=== PATIENT | male | born 1970 | race African-American/Black ===

== ENCOUNTER 2018-04-11 20:32 | Emergency (ER) | payer OTHER, SELFPAY ==
--- NOTE | 2018-04-11 20:32 | DT_ITS ---
This patient was seen during an EMR downtime April 06, 2018 - April 13, 2018. This patient may have a combination of paper and electronic documentation or all paper documentation. All documentation is viewable within the e-chart portion of [employer]Sheet for each patient visit.
== END 2018-04-11 20:55 | disposition home or self-care (01) ==
LOC: ED 04-12 15:55
PROVIDERS: Emergency Provider Emergency Medicine; Family Provider Internal Medicine; PCP Internal Medicine
DX: H60.91 Unspecified otitis externa, right ear (principal); E11.9 Type 2 diabetes mellitus without complications; Z72.0 Tobacco use; Z79.84 Long term (current) use of oral hypoglycemic drugs; Z79.899 Other long term (current) drug therapy
CPT/HCPCS: 99283

== ENCOUNTER 2021-09-11 12:03 | Outpatient (CLI) | payer OTHER, SELFPAY ==
[2021-09-11] MEDS: 0.9% Saline Lock 10 ML Syringe IV (12:23)
[2021-09-11 12:33] VITALS: BP 122/83; PULSE 108; RESP 16; TEMP 36.6; O2SAT 98; BMI 38.2
[2021-09-11 13:09] VITALS: BP 122/83; PULSE 108; RESP 18; TEMP 36.6; O2SAT 98
[2021-09-11 14:09] VITALS: BP 116/72; PULSE 98; RESP 16; TEMP 36.6; O2SAT 98
== END 2021-09-11 14:11 | disposition home or self-care (01) ==
LOC: MS3OUT 12:09 → MS3 12:10
PROVIDERS: PCP Internal Medicine; Referring Provider Nurse Practitioner Acute Care; Visit Provider Nurse Practitioner Acute Care
DX: Z23 Encounter for immunization (principal); U07.1 COVID-19
CPT/HCPCS: J7050; M0245; Q0245; A4216

== ENCOUNTER → 2023-07-01 | Outpatient (CLI) | payer OTHER, SELFPAY ==
[2023-07-01 12:54] LABS: Anion Gap 9 (5-15); BUN 16 mg/dL (7-18); BUN/Creat Ratio 11.8 RATIO (10-20); Calcium,Total 9.6 mg/dL (8.5-10.1); Chloride 105 mmol/L (98-107); Creatinine, Serum 1.36 mg/dL (0.70-1.30); EST Glomerular Filtration Rate 58 mL/min (>60); Est Glom Filt Rate - Afr Amer 70 mL/min (>60); Glucose 177 mg/dL (74-106); Potassium 3.7 mmol/L (3.5-5.1); Sodium Level 139 mmol/L (136-145)
== END | disposition home or self-care (01) ==
LOC: LAB 11:34
PROVIDERS: PCP Internal Medicine; Referring Provider Nurse Practitioner; Visit Provider Nurse Practitioner
DX: Z12.5 Encounter for screening for malignant neoplasm of prostate (principal); R94.4 Abnormal results of kidney function studies
CPT/HCPCS: 36415; 80048; 84153; G0103

== ENCOUNTER → 2023-09-11 | Outpatient (CLI) | payer OTHER, SELFPAY ==
--- NOTE | 2023-09-11 07:55 | CT_ITS ---
STUDY: CT ABDOMEN AND PELVIS WITH AND WITHOUT CONTRAST REASON FOR EXAM: Male, 53 years old. Abnormal radiologic findings on diagnostic imaging of right kidney RADIATION DOSAGE (If Supplied By Facility): CTDIvol = ( 26.26 ) mGy, DLP = ( 4379.70 ) mGycm TECHNIQUE: Transaxial images were obtained from the dome of the diaphragm to the symphysis pubis without oral contrast. IV 100mL Isovue-370 was administered. Sagittal and coronal images were reconstructed. Individualized dose optimization techniques were used for this CT. COMPARISON: None. FINDINGS: The visualized lung bases are unremarkable. Small pericardial effusion. There is decreased attenuation of the liver consistent with steatosis. Normal gallbladder and extrahepatic biliary system. Normal spleen. Normal pancreas. Normal bilateral adrenal glands. Findings suggestive of a 2.4 cm x 2 cm soft tissue density in the collecting system in the mid portion of the right kidney. Normal left kidney. Normal visualized stomach. Normal small intestine. Normal colon. The appendix is visualized and appears normal. There is scattered atherosclerotic calcification of the abdominal aorta, without a demonstrated aneurysm. Normal inferior vena cava. There is small retroperitoneal lymphadenopathy with enlarged nodes no greater than 10mm in the short axis diameter. Normal urinary bladder. There is enlargement of the prostate gland. It measures 6 cm x 6.6 cm. This causes indentation at the bladder base. Normal abdominal wall. Normal osseous structures. CT/CT Abd/Pelvis W/WO Contrast IMPRESSION: Findings suggestive of a 2.4 cm x 2 cm soft tissue density in the collecting system in the midportion of the right kidney. Correlation with retrograde pyelogram recommended. Diffuse fatty infiltration of the liver. Small pericardial effusion. Electronically Signed: Emiliano Martins MD at 15:17 EST ,
[2023-09-11 08:37] LABS: CREATININE FINGERSTICK 0.9 mg/dL (0.70-1.30); EGFR FINGERSTICK > 60.0000 mL/min (>60)
== END | disposition home or self-care (01) ==
LOC: CT 07:51
PROVIDERS: PCP Internal Medicine; Referring Provider Urology; Visit Provider Urology
DX: Z12.5 Encounter for screening for malignant neoplasm of prostate (principal); R93.421 Abnormal radiologic findings on diagnostic imaging of right kidney; R94.4 Abnormal results of kidney function studies; Z80.42 Family history of malignant neoplasm of prostate
CPT/HCPCS: 74178; Q9967

== ENCOUNTER → 2024-03-31 | Outpatient (CLI) | payer OTHER, SELFPAY ==
--- NOTE | 2024-03-31 12:46 | CT_ITS ---
INDICATION: ABN RAD ON DX IMAGING R KIDNEY EXAMINATION: CT ABDOMEN WITH IV CONTRAST CT Abdomen W/ Contrast Injection TECHNIQUE: Helically acquired images were obtained of the abdomen following IV contrast. The protocol utilizes one or more of the following dose reduction techniques: automated exposure control, adjustment of mA and/or kV according to patient size,and/or use of iterative reconstruction technique. IV Contrast dosage and agent: 100 cc of Isovue-300 Oral contrast: None. RADIATION DOSAGE (If Supplied By Facility): CTDIvol = ( 15.91 ) mGy, DLP = ( 883.74 ) mGycm COMPARISON: Prior study dated: 09/11/2023 FINDINGS: LOWER CHEST: Lung bases are clear. Persistent small pericardial effusion unchanged. LIVER: Hepatic steatosis. No focal mass. GALLBLADDER AND BILIARY TREE: No calcified gallstones. No gallbladder distension or wall edema. No intra- or extrahepatic biliary ductal dilation. PANCREAS: No focal cystic or solid mass. SPLEEN: Normal size without focal cystic or solid mass. ADRENAL GLANDS: No nodules. KIDNEYS AND URETERS: Previously noted questionable abnormality in the mid pole of right kidney is not seen on this examination. No focal mass is identified.] Irregularity in the upper pole of right kidney likely due to small fatty lesion. No hydronephrosis. PERITONEUM: No ascites or free air. No other fluid collection. BOWEL: No evidence of acute appendicitis. No stomach or bowel distension. No focal inflammatory change. LYMPH NODES: No enlarged mesenteric or retroperitoneal lymph nodes. VESSELS: Aorta is non-dilated. ABDOMINAL WALL: No discrete abdominal wall hernia. BONES: No lytic or blastic abnormality. CT/Abdomen WITH IV Contrast IMPRESSION: 1. No renal mass is seen. 2. Hepatic steatosis. 3. Small pericardial effusion unchanged. Electronically Signed: Amandeep Wynn MD at 14:13 EDT ,
[2024-03-31 13:13] LABS: CREATININE FINGERSTICK 1.4 mg/dL (0.70-1.30)
== END | disposition home or self-care (01) ==
LOC: CT 12:45
PROVIDERS: PCP Internal Medicine; Referring Provider Urology; Visit Provider Urology
DX: R93.421 Abnormal radiologic findings on diagnostic imaging of right kidney (principal)
CPT/HCPCS: 74160; Q9967

== ENCOUNTER 2024-10-22 10:09 | Inpatient (IN) | payer OTHER, SELFPAY ==
[2024-10-22] VITALS (13 sets, daily range): BP systolic 101–133; BP diastolic 60–114; PULSE 82–114; RESP 13–22; TEMP 36.3–37.6; O2SAT 96–100; BMI 38.6; BMI 38.4
--- NOTE | 2024-10-22 10:17 | EKG12_ITS ---
Test Reason : Blood Pressure : */* mmHG Vent. Rate : 100 BPM Atrial Rate : 100 BPM P-R Int : 176 ms QRS Dur : 96 ms QT Int : 368 ms P-R-T Axes : 55 -23 42 degrees QTcB Int : 474 ms Normal sinus rhythm Incomplete right bundle branch block Borderline ECG Confirmed by ERNST BROOKS, CLARENCE ([id number]), editor city YVONNE VALLE ([id number]) on 10/25/2024 6:34:43 AM Referred By: Confirmed By: CLARENCE DUKES MD
[2024-10-22] MEDS: 0.9% Normal Saline (1000mL) 1,000 ML 999 ML IV (10:29)
[2024-10-22 10:35] LABS: Absolute Lymphocyte Count 2.44 X10^3/uL (0.83-4.51); Absolute Neutrophil Count 4.5 X10^3/uL (2.0-7.7); Basophil# 0.05 X10^3/uL; Basophil% 0.6 % (0-1); Eosinophil# 0.18 X10^3/uL; Eosinophils% 2.3 % (0-5); Hematocrit 27.7 % (40-54); Hemoglobin 8.9 g/dL (13.0-16.5); Lymphocyte # 2.44 X10^3/ul (0.83-4.51); Lymphocyte % 31.5 % (19-41); Mean Corp Hgb Conc 32.1 g/dL (32-36); Mean Corpuscular Hgb 28.1 pg (27.0-32.0); Mean Corpuscular Volume 87.4 fL (80-94); Mean Platelet Vol. 10.2 fl (6.2-12.0); Monocyte# 0.57 X10^3/uL; Monocyte% 7.4 % (0-10); NRBC Flagged by Analyzer 1.4 % (0-5); Neutrophil # 4.48 X10^3/uL (2.7-7.7); Neutrophil % 57.8 % (47-70); Platelet Count 243 K/mm3 (150-450); RBC Distribution Width CV 14.8 % (11.6-14.6); RBC Distribution Width SD 45.7 fl (35.1-43.9); Red Blood Count 3.17 M/mm3 (4.6-6.2); White Blood Count 7.8 K/mm3 (4.4-11.0)
[2024-10-22 10:56] LABS: ALB/GLOB Ratio 1.2 RATIO (0.9-2.4); AST(SGOT) 20 U/L (15-37); Alanine Aminotransfer ALT/SGPT 35 U/L (16-61); Albumin, Serum 3.8 g/dL (3.2-5.0); Alkaline Phosphatase 69 U/L (45-117); Anion Gap 5 (5-15); BUN 13 mg/dL (7-18); BUN/Creat Ratio 10.7 RATIO (10-20); Calcium,Total 9.4 mg/dL (8.5-10.1); Chloride 108 mmol/L (98-107); Creatinine, Serum 1.22 mg/dL (0.70-1.30); EST Glomerular Filtration Rate 65 mL/min (>60); Est Glom Filt Rate - Afr Amer 79 mL/min (>60); Estimated Creatinine Clearance 93.98 ml/min; Globulin 3.3 g/dL (2.2-4.2); Glucose 154 mg/dL (74-106); Lipase 121 U/L (13-75); Potassium 3.6 mmol/L (3.5-5.1); Protein, Total 7.1 g/dL (6.4-8.2); Sodium Level 139 mmol/L (136-145); Troponin-I HS 5 pg/mL (3.0-78.0)
[2024-10-22] MEDS: Pantoprazole Sodium 40 MG in 0.9% Normal Saline (100mL MB+) 100 ML 330 MG IV (11:12)
--- NOTE | 2024-10-22 11:17 | EX.ED.DYSGE1 ---
HPI History of Present Illness Chief Complaint: GI Bleed Narrative Narrative: Patient is a 54-year-old male with past medical history of LESLIE, hypercholesteremia, hypertension, type 2 diabetes who presents to the emergency department with a chief complaint of shortness of breath, dark tarry stools. He states it has been going on for about a week. He states that he followed up with his primary care physician in the outpatient setting and notes that he had blood work obtained and noted that his hemoglobin was noted be 9.7. He states that he provided a stool sample that was positive for blood. He states that over the past 2 to 3 weeks he has been using meloxicam and Tylenol arthritis as well. Patient states that he had a recent colonoscopy within the last approximately 3 years and notes that this was normal and no polyps were removed. He states that he has not had anything like this happen before. He states that he is getting short of breath with exertion as well but denies any chest pain. [facility] Medical History Back pain Neck pain Knee pain Shoulder pain Hemorrhoids Gout Acute arthritis Sleep apnea High cholesterol High blood pressure Diabetes type 2, controlled Home Medications ?Medication ?Instructions ?Recorded ?Last Taken ?Type atorvastatin 40 mg tablet 40 mg PO QHS 09/11/21 Unknown History hydrochlorothiazide 12.5 mg capsule 12.5 mg PO DAILY 09/11/21 Unknown History losartan 100 mg tablet 100 mg PO DAILY 09/11/21 Unknown History metformin 500 mg tablet 1,000 mg PO BID 09/11/21 Unknown History omeprazole 40 mg capsule,delayed 80 mg PO DAILY 09/11/21 Unknown History release empagliflozin 25 mg tablet 25 mg PO DAILY 07/13/23 Unknown History (Jardiance) Allergy/AdvReac Type Severity Reaction Status Date / Time ADRIANA Inhibitors Allergy Intermediate hives Verified 10/22/24 10:11 Social History Smoking Status: Never smoker ROS ROS ED ROS Narrative Constitutional: Denies any lightheadedness, dizziness, fevers, chills Eyes: Denies change in vision double vision blurry vision Cardiovascular: Denies chest pain or palpitations Respiratory: Complains of shortness of breath as noted above denies coughing or wheezing Abdomen: Denies any abdominal pain nausea vomit diarrhea : Denies any urinary symptoms Neurological: Denies any numbness, weakness, tingling Musculoskeletal: Denies back pain Skin: Denies rashes or lesions EXAM Physical Exam Narrative Exam Narrative: General: Patient lying in bed rest comfortably did not appear to be in acute distress Head:'s atraumatic, normocephalic Eyes: PERRL body, EOMI bilateral, no conjunctival injection noted Neck: Soft, supple, trachea midline Cardiovascular: Regular rate and rhythm no murmurs gallops rubs noted Respiratory: Clear to auscultation bilaterally no rales rhonchi or wheezes noted Abdomen: Soft, nondistended, no tenderness palpation, bowel sounds present x 4 Extremities: +5/5 strength noted in the bilateral upper and lower extremities Neurological: Patient following commands knew that he was at [facility] year is 2023 Skin: Warm, dry, intact Const Vital Signs: 10/22/24 10:10 10/22/24 10:10 10/22/24 12:10 Temperature 97.3 F L Temperature Source Temporal Pulse Rate 113 H 114 H 92 Respiratory Rate 22 H 13 Blood Pressure 131/86 H 104/65 Blood Pressure Mean 101 78 Pulse Ox 99 97 Oxygen Delivery Method Room Air Room Air MDM MDM MDM Narrative Medical decision making narrative: Patient is a 54-year-old male who presented to the emergency department chief complaint of dark tarry stools. Patient will have a workup performed here on the differential diagnose includes Melamin to upper GI bleed, diverticulosis, diverticulitis. Once workup is obtained reviewed he will be reevaluated. Patient will be given 40 mg IV Protonix. Patient CBC was reviewed and showed a white blood count of 7.8, hemoglobin did drop from 9.7-8.9, platelet count normal at 243. Patient sodium normal 139, potassium normal 3.6, creatinine normal at 1.22. Patient's AST and ALT were normal at 20 and 35 respectively with a normal total bilirubin of 0.60. Patient lipase was elevated to 121. Patient does not have any epigastric pain on exam. Patient was ambulated here in the emergency department oxygen level remained normal however he did become tachycardic and short of breath with exertion. I did discuss case with Dr. Tolbert who states that he would like the patient to be admitted so he can perform an EGD. Patient is agreeable this plan patient case will be discussed with hospitalist. Discussed case with hospitalist Dr. Steve who accept patient for admission. Patient is agreeable with this plan all question concerns were answered bedside. Lab Data Labs: Laboratory Results - last 24 hr 10/22/24 10:30 WBC 7.8 RBC 3.17 L Hgb 8.9 L Hct 27.7 L MCV 87.4 MCH 28.1 MCHC 32.1 RDW Std Deviation 45.7 H RDW Coeff of Ekaterina 14.8 H Plt Count 243 MPV 10.2 Immature Gran % (Auto) 0.400 Neut % (Auto) 57.8 Lymph % (Auto) 31.5 [place] % (Auto) 7.4 Eos % (Auto) 2.3 Baso % (Auto) 0.6 Absolute Neuts (auto) 4.5 Absolute Lymphs (auto) 2.44 Nucleated RBC % 1.4 Sodium 139 Potassium 3.6 Chloride 108 H Carbon Dioxide 27.0 Anion Gap 5 BUN 13 Creatinine 1.22 Estim Creat Clear Calc 93.98 Est GFR (MDRD) Af Amer 79 Est GFR (MDRD) Non-Af 65 BUN/Creatinine Ratio 10.7 Glucose 154 H Calcium 9.4 Total Bilirubin 0.60 AST 20 ALT 35 Alkaline Phosphatase 69 Troponin I High Sens 5 B-Natriuretic Peptide 2.3 Total Protein 7.1 Albumin 3.8 Globulin 3.3 Albumin/Globulin Ratio 1.2 Lipase 121 H Discharge Plan Triage Chief Complaint: GI Bleed ED Provider: Cali Marc Dx/Rx/DC Orders Clinical Impression: Upper GI bleed, Dyspnea on exertion Prescriptions: No Action Jardiance 25 mg tablet 25 mg PO DAILY atorvastatin 40 mg tablet 40 mg PO QHS Patient Comments: take 1 tablet by mouth daily at bedtime metformin 500 mg tablet 1,000 mg PO BID Patient Comments: take 2 tablets by mouth twice a day with meals omeprazole 40 mg capsule,delayed release(DR/EC) 80 mg PO DAILY Patient Comments: take 1 capsule by mouth once daily hydrochlorothiazide 12.5 mg capsule 12.5 mg PO DAILY Patient Comments: take 1 capsule by mouth once daily losartan 100 mg tablet 100 mg PO DAILY Patient Comments: take 1 tablet by mouth once daily Primary Care Provider: Bladimir Smith Referrals: Bladimir Smith MD [Primary Care Provider] - Print Language: Luxembourgish Disposition Disposition: Acute Care Hospital [facility]
[2024-10-22 11:32] LABS: BNP,B-Type NATRIURETIC PEPTIDE 2.3 pg/mL (0-100)
--- NOTE | 2024-10-22 12:16 | PCM.HP.STD ---
HPI - General General Date of Admission: 10/22/24 Date of Service: 10/22/24 Chief Complaint: Dark stools HPI Narrative AI SHAFER, is a 54 M who presented to the emergency department [facility] on 12/23/2023 due to dark tarry stools. He reported that he has had dark tarry stools for about a week and he said progressively worsening shortness of breath with exertion. He went to his primary care physician's office today and had blood work at which time he was found to be anemic with a hemoglobin of 9.7. This is reportedly new however baseline is unknown. A stool sample was provided and found to be positive for heme and he was therefore sent to the emergency department. He reported that over the past 2 to 3 weeks he has been using meloxicam and Tylenol arthritis consistently for joint pain. He did report that he had a colonoscopy within the last 3 years and it was normal with no polyps removed. He states he is never had anything like this previously and has never been admitted in the hospital before. He denies any chest pain, nausea or vomiting, hematemesis, hematochezia or diarrhea. Vital signs on presentation showed a temperature of 97.3, heart rate 113, respiratory rate 22, blood pressure was 131/86 and pulse ox was 99% on room air. CBC on admission showed a hemoglobin of 8.9 but was otherwise unremarkable. Chemistry panel was unremarkable other than hyperglycemia with a blood sugar 154. Glascow-Blatchford score was 9 the [facility] Medical History Back pain Neck pain Knee pain Shoulder pain Hemorrhoids Gout Acute arthritis Sleep apnea High cholesterol High blood pressure Diabetes type 2, controlled Home Medications ?Medication ?Instructions ?Recorded ?Last Taken ?Type atorvastatin 40 mg tablet 40 mg PO QHS 09/11/21 Unknown History hydrochlorothiazide 12.5 mg capsule 12.5 mg PO DAILY 09/11/21 Unknown History losartan 100 mg tablet 100 mg PO DAILY 09/11/21 Unknown History metformin 500 mg tablet 1,000 mg PO BID 09/11/21 Unknown History omeprazole 40 mg capsule,delayed 80 mg PO DAILY 09/11/21 Unknown History release empagliflozin 25 mg tablet 25 mg PO DAILY 07/13/23 Unknown History (Jardiance) Allergy/AdvReac Type Severity Reaction Status Date / Time ADRIANA Inhibitors Allergy Intermediate hives Verified 10/22/24 10:11 Family History no significant family his no significant family history Surgical History no surgical history no surgical history Social History (Updated 10/22/24 @ 17:[address] Kat Steve, DO) Smoking Status: Former smoker how long ago did patient quit smokin or 8 years ago alcohol intake: current alcohol intake frequency: holidays/special occasions only substance use type: does not use ROS Constitutional Constitutional: Denies anorexia, change in weight, chills, fatigue, fever(s), malaise, night sweats, weakness or other Eyes Eyes: Denies blurry vision, change in eye color, change in vision, discharge from eye(s), double vision, erythema, eye pain, loss of vision or other ENT HEENT: Denies abnormal hearing, dysphagia, ear pain, epistaxis, headache(s), hearing loss, nasal congestion, nasal discharge, post nasal drip, sinus pressure, sore throat or other Cardiovascular Cardiovascular: Reports dyspnea on exertion; Denies chest pain, claudication, edema, lightheadedness, orthopnea, palpitations, paroxysmal nocturnal dyspnea, rapid heart rate, syncope or other Respiratory/Chest Respiratory/Chest: Reports shortness of breath with exertion; Denies cough, dyspnea, excessive phlegm production, hemoptysis, productive cough, shortness of breath at rest, wheezing or other Gastrointestinal Gastrointestinal: Reports melena; Denies abdominal pain, coffee ground emesis, constipation, diarrhea, dyspepsia, hematemesis, hematochezia, loose stools, nausea, vomiting or other Genitourinary Genitourinary: Denies burning urination, difficulty urinating, dysuria, hematuria, nocturia, urinary frequency, urinary hesitancy, urinary incontinence, urinary urgency or other Musculoskeletal Musculoskeletal: Reports joint pain and joint stiffness Neurologic Neurologic: Denies abnormal gait, abnormal speech, confusion, disequilibrium, dizziness, focal weakness, headache(s), numbness, paresthesias, seizure-like activity, seizures, syncope, tingling, tremor(s) or other Psychiatric Psychiatric: Denies anxiety, depression, homicidal ideation, suicidal ideation or other Endocrine Endocrinology: Denies change in body appearance, cold intolerance, excessive sweating, heat intolerance, polydipsia, polyuria or other Hematologic/Lymphatic Hematologic/Lymphatic: Denies anemia, easy bleeding, easy bruising, lymphadenopathy or other Allergic/Immunologic Allergic/Immunologic: Denies rhinitis, hives, eczemia, asthma or other Vital Signs Vital Signs Vital Signs: 10/22/24 10:10 10/22/24 10:10 10/22/24 12:10 Temperature 97.3 F L Temperature Source Temporal Pulse Rate 113 H 114 H 92 Respiratory Rate 22 H 13 Blood Pressure 131/86 H 104/65 Blood Pressure Mean 101 78 Pulse Ox 99 97 Oxygen Delivery Method Room Air Room Air Weight Weight: 129.3 kg Body Mass Index (BMI) 38.6 Physical Exam Const alert, oriented x3, no apparent distress, healthy appearing and well nourished; Negative for average body habitus Constitutional Narrative: Obese, middle-aged, -[place] male, sitting up in bed, appears comfortable, nontoxic General Appearance: cooperative HEENT normocephalic, head/scalp atraumatic, hearing grossly normal bilaterally and moist oral mucous membranes HEENT Narrative: Mallampati 3 Eyes Negative for conjunctivae normal Eyes Narrative: Conjunctiva pallor noted, no scleral icterus Resp normal respiratory effort, no retractions, no use of accessory muscles and clear to auscultation bilaterally Auscultation: Negative for rales, rhonchi or wheezes Cardio regular rhythm, S1 normal heart sound, S2 normal heart sound, no murmurs, no rub, no gallops and no clicks; Negative for regular rate Cardio Narrative: Mild tachycardia GI normal to inspection, nondistended, normoactive bowel sounds, soft to palpation and non-tender Extremity no clubbing, cyanosis or edema Extremity Narrative: 2+ pedal and radial pulses Neuro oriented x3, moves all extremities and no focal motor deficits Speech: speech normal Psych affect normal Psych Narrative: Eye contact is good patient interacts appropriately Results Lab / Micro Data 10/22/24 13:12 10/22/24 10:30 Labs: Laboratory Results - last 24 hr 10/22/24 10:30: WBC 7.8, RBC 3.17 L, Hgb 8.9 L, Hct 27.7 L, MCV 87.4, MCH 28.1, MCHC 32.1, RDW Std Deviation 45.7 H, RDW Coeff of Ekaterina 14.8 H, Plt Count 243, MPV 10.2, Immature Gran % (Auto) 0.400, Neut % (Auto) 57.8, Lymph % (Auto) 31.5, [place] % (Auto) 7.4, Eos % (Auto) 2.3, Baso % (Auto) 0.6, Absolute Neuts (auto) 4.5, Absolute Lymphs (auto) 2.44, Nucleated RBC % 1.4, Sodium 139, Potassium 3.6, Chloride 108 H, Carbon Dioxide 27.0, Anion Gap 5, BUN 13, Creatinine 1.22, Estim Creat Clear Calc 93.98, Est GFR (MDRD) Af Amer 79, Est GFR (MDRD) Non-Af 65, BUN/Creatinine Ratio 10.7, Glucose 154 H, Calcium 9.4, Total Bilirubin 0.60, AST 20, ALT 35, Alkaline Phosphatase 69, Troponin I High Sens 5, B-Natriuretic Peptide 2.3, Total Protein 7.1, Albumin 3.8, Globulin 3.3, Albumin/Globulin Ratio 1.2, Lipase 121 H Assessment & Plan Assessment/Plan (1) Melena: (2) Acute anemia: (3) Dyspnea on exertion: PLAN: Plan Melena -Highly suspect related upper GI bleed with ongoing NSAID use -Suspect slow bleed due to lack of abnormality and BUN/creatinine ratio -Protonix bolus with drip started -N.p.o. for now -Every 6 hour hemoglobin -Avoid NSAIDs -Patient is not on any anticoagulants -Will transfuse for hemoglobin less than 7 or precipitous drop -GI consultation for probable EGD later today Acute anemia -Baseline is unknown however his primary care physician told him his hemoglobin was down quite a bit and was reported to be 9.7 in the outpatient setting with a repeat here of 8.9 -Every 6 hour hemoglobin -Transfuse for hemoglobin less than 7 or precipitous drop -Likely related to the above -Will prescribe oral iron at discharge -EGD pending Dyspnea on exertion -Highly suspect it is related to his anemia -Monitor clinically Essential hypertension/hyperlipidemia -Will hold home losartan and HCTZ for now given drop in blood pressure with anemia -Continue home atorvastatin DM-2 -Continue home Jardiance -Hold home metformin -SSI with Accu-Cheks every 6 hours for now -Once p.o. diet started transition to 3 times daily History of GERD -Hold home omeprazole History of LESLIE -Patient noncompliant with CPAP -Monitor for oxygen needs while sleeping Obesity -BMI 38.4 -Recommend weight loss -complicates treatment, prognosis, outcomes Remote tobacco abuse -Encouraged ongoing cessation DVT prophylaxis -No chemoprophylaxis due to bleeding -SCDs CODE STATUS Full code Charges/Coding Visit Charges Inpatient E&M: 95252 Init Hosp L2
[2024-10-22 13:20] LABS: Hemoglobin 7.9 g/dL (13.0-16.5)
--- NOTE | 2024-10-22 13:31 | CASEMGMT ---
Care Management Face to Face with patient for initial transition planning/care coordination assessment in the ED. This television writer introduced self and role at [facility]. Patient lying in bed, alert and oriented. Patient?s , Ruchi, bedside and permission given to speak with patient?s present. Patient willing to participate in assessment and is able to answer all questions appropriately. Care providers, pharmacy, and demographics verified. Admitting Diagnosis: dyspnea on exertion Other diagnosis history: hypercholesteremia, hypertension, type 2 diabetes PCP: Dr. Smith Specialists: none Preferred Pharmacy: [facility] ([place]) Insurance: [employer] Prescription Benefit: yes Living Will/HPOA: none, but would like to complete while admitted. LNOK: , Ruchi. 4 children. 3 of which live locally; one in [place]. Living Arrangements: 3 level home, one of which is basement. 3 steps to enter and full flights of stairs to top floor and to basement. Independent with all ADL?s prior. Transportation: patient drives and reports it is reliable transportation. DME: CPAP that patient reports he does not use as often as he should. Glucometer and testing strips, although he reports not using this as often as he should either and reports not knowing when the last time he picked up testing strips was. HHC: none. Outpatient PT for back pain recently began through the [facility] SNF/Rehab: none Community Resources: none Patient goals: Patient wishes to discharge home, denies need for home health at this time. Patient states he has no further needs or concerns at this time. Disposition Plan: admission to acute; RN CM/SW to follow for discharge planning needs that may arise. Melissa Alarcon, INTERNAL SECURITY MANAGER, [employer]
[2024-10-22] MEDS: Pantoprazole Sodium 80 MG in 0.9% Normal Saline (100mL Bag) 80 ML 10 MG CONT INF (14:16)
--- NOTE | 2024-10-22 16:04 | PRE.ANES_ITS ---
ASA Classification* ASA Classification ASA Classification: 2 Assessment & Plan Anesthesia* Anesthesia Assessment Anesthesia Assessment: Discussed sedation and/or anesthesia options, risks, benefits, and alternatives with patient/parents/legal guardian/POA. Questions invited. The patient/parents/legal guardian/POA seems to understand and agrees to proceed with anesthesia plan. Reviewed the physical assessment, medical history, allergy history and patient home medications list prior to surgery/procedure/anesthetic and documented any changes. Performed airway and anesthesia risk assessments. Anesthesia Type Anesthesia Type: MAC History Source History Obtained from:: Patient and Chart Anesthesia Focused Assessment* Temperature: 97.8 F Pulse Rate: 82 Blood Pressure: 103/60 Respiratory Rate: 16 Pulse Ox: 96 Oxygen Delivery Method: Room Air Airway Assessment Mouth opens: >3 cm Mallampati Score: IV Teeth Condition: Caps/Crowns (Patient has a couple of His Upper Teeth. They Are Both Tight.) Neck Range of motion (ROM): Limited ROM Focused Labs Anesthesia Preop lab: CBC WBC 7.8 K/mm3 (4.4-11.0) 10/22/24 10:30 RBC 3.17 M/mm3 (4.6-6.2) L 10/22/24 10:30 Hgb 7.9 g/dL (13.0-16.5) L 10/22/24 13:12 Hct 25.0 % (40-54) L 10/22/24 13:12 Plt Count 243 K/mm3 (150-450) 10/22/24 10:30 CHEMISTRY Potassium 3.6 mmol/L (3.5-5.1) 10/22/24 10:30 Sodium 139 mmol/L (136-145) 10/22/24 10:30 BUN 13 mg/dL (7-18) 10/22/24 10:30 Creatinine 1.22 mg/dL (0.70-1.30) 10/22/24 10:30 Glucose 154 mg/dL (74-106) H 10/22/24 10:30 COAG Pre-Assessment Diagnosis/Proposed Procedure Planned Operative Procedure(s): Esophagogastroduodenoscopy. 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 When Was Last Pacemaker Check QUESTION #4 FULL TEXT: You/Your Family Experience fever (hyperthermia) with Anesthesia Last Oral Intake Last Oral intake: Last Oral Intake NPO since Meds taken in AM with sips of water? Meds patient instructed to take am of surgery Any additional information?: Yes NPO since: 09:00 (Patient had a full breakfast croissant sandwich at 9 AM.) Meds taken in AM with sips of water?: Yes PONV PONV - plaster molder: PONV - plaster molder Female HX of Motion Sickness HX of N/V After Surgery Non-Smoker Duration of Surgery greater than 60 minutes Number of Risk Factors PONV Score Height & Weight Height & Weight: Anesthesia: Height & Weight Height 6 ft 10/22/24 12:59 Weight: 128.5 kg 10/22/24 12:59 Body Mass Index (BMI) 38.4 10/22/24 12:59 Respiratory Assessment Respiratory Assessment - plaster molder: Respiratory Tract Infection Hx - plaster molder Hx Respiratory Tract Infection Any additional information?: Yes Hx Respiratory Tract Infection: No STOP Sleep Apnea STOP Sleep Apnea - plaster molder: STOP Sleep Apnea - plaster molder Hx Hypertension Yes 10/22/24 12:59 Hx Sleep Apnea Yes 10/22/24 12:59 CPAP No 10/22/24 12:59 BIPAP No 10/22/24 12:59 Do you snore loudly (louder than talking or can be heard Do you often feel tired/ fatigued/ sleepy during daytime? Has anyone observed you stop breathing during sleep? STOP Results Positive 10/22/24 12:59 QUESTION #5 FULL TEXT : Do you snore loudly (louder than talking or can be heard through closed doors)? 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 Specify any problems Hx of Preganancy in last 3 N/A 10/22/24 12:59 Months Nurse Filling Out Transfusion [email or web address] 10/22/24 12:59 & Questions: Date: 10/22/24 10/22/24 12:59 Time: 13:07 10/22/24 12:59 Patient unable to answer at this time (ie. confused, unrespo /Reproduction History /Reproductive History - plaster molder: /Reproductive Hx- plaster molder Hx Now Gestational Age (in weeks): EDC: Hx Hx Para Hx Section SAB Active Medications Active Medications: Current Medications Generic Name Dose Route Start Last Admin Trade Name Freq PRN Reason Stop Dose Admin Acetaminophen 650 mg 10/22/24 12:56 Acetaminophen 325 Mg Tablet PO Q6H PRN PRN Pain 1-10 Or Fever >100.7 Atorvastatin Calcium 40 mg 10/22/24 22:00 Atorvastatin Calcium 40 Mg Tablet PO QHS MATTHEW Empagliflozin 25 mg 10/23/24 10:00 Empagliflozin 25 Mg Tablet PO DAILY MATTHEW Glucagon 1 mg 10/22/24 12:56 Glucagon 1 Mg/Ml Syringe IM X1 PRN HYPOGLYCEMIA Protocol Hydrochlorothiazide 12.5 mg 10/23/24 10:00 Hydrochlorothiazide 12.5mg PO DAILY MATTHEW Protocol Pantoprazole Sodium 80 mg/ 100 mls @ 10 mls/hr 10/22/24 12:56 10/22/24 14:16 Sodium Chloride CONT INF 10/25/24 12:57 10 mls/hr Q10H MATTHEW Administration Dextrose 250 mls @ 0 mls/hr 10/22/24 12:56 Dextrose 10%-Water IV .Q0M PRN HYPOGLYCEMIA Protocol As Directed Sodium Chloride 100 mls @ 15 mls/hr 10/22/24 13:03 IV .Q6H40M PRN Saline Flush Sodium Chloride 100 mls @ 15 mls/hr 10/22/24 13:03 IV .Q6H40M PRN Additional IVPB Infusion Insulin Human Lispro 0 unit 10/22/24 18:00 Insulin Lispro 100 Unit/Ml Insuln.Pen SC Q6 MATTHEW Protocol Losartan Potassium 100 mg 10/23/24 10:00 Losartan Potassium 100 Mg Tablet PO DAILY MATTHEW Protocol Melatonin 3 mg 10/22/24 12:56 Melatonin 3 Mg Tablet PO QHS PRN PRN INSOMNIA Ondansetron HCl 4 mg 10/22/24 12:56 Ondansetron 4 Mg/2 Ml Vial IV Q8H PRN PRN NAUSEA/VOMITING Pantoprazole Sodium 40 mg 10/26/24 10:00 Pantoprazole Sodium 40 Mg Tablet PO BID MATTHEW Senna/Docusate Sodium 2 tablet 10/22/24 12:56 Senna/Docusate Sodium 1 Tablet PO BID PRN PRN Constipation Sodium Chloride 10 - 40 ml 10/22/24 13:03 0.9% Saline Lock 10 Ml Syringe IV UD PRN SALINE FLUSH [facility] Medical History Back pain Neck pain Knee pain Shoulder pain Hemorrhoids Gout Acute arthritis Sleep apnea High cholesterol High blood pressure Diabetes type 2, controlled Home Medications ?Medication ?Instructions ?Recorded ?Last Taken ?Type atorvastatin 40 mg tablet 40 mg PO QHS 09/11/21 Unknown History hydrochlorothiazide 12.5 mg capsule 12.5 mg PO DAILY 09/11/21 Unknown History losartan 100 mg tablet 100 mg PO DAILY 09/11/21 Unknown History metformin 500 mg tablet 1,000 mg PO BID 09/11/21 Unknown History omeprazole 40 mg capsule,delayed 80 mg PO DAILY 09/11/21 Unknown History release empagliflozin 25 mg tablet 25 mg PO DAILY 07/13/23 Unknown History (Jardiance) Allergy/AdvReac Type Severity Reaction Status Date / Time ADRIANA Inhibitors Allergy Intermediate hives Verified 10/22/24 10:11 Social History Smoking Status: Never smoker Review of Systems (Anesthesia) ROS Narrative System reviewed and no additional complaints, except as documented.
--- NOTE | 2024-10-22 16:13 | EX.PCM.CON.G ---
HPI Consult Data Date of Consult: 10/22/24 HPI Narrative Reason for Consultation: GI bleed HPI Narrative: AI SHAFER, is a 54-year-old male with past medical history of LESLIE, hypercholesteremia, hypertension, type 2 diabetes who presents to the emergency department with a chief complaint of shortness of breath, dark tarry stools. He states it has been going on for about a week. He states that he followed up with his primary care physician in the outpatient setting and notes that he had blood work obtained and noted that his hemoglobin was noted be 9.7. He states that he provided a stool sample that was positive for blood. He states that over the past 2 to 3 weeks he has been using meloxicam and Tylenol arthritis as well. Patient states that he had a recent colonoscopy within the last approximately 3 years and notes that this was normal and no polyps were removed. He states that he has not had anything like this happen before. He states that he is getting short of breath with exertion as well but denies any chest pain. [facility] Medical History Back pain Neck pain Knee pain Shoulder pain Hemorrhoids Gout Acute arthritis Sleep apnea High cholesterol High blood pressure Diabetes type 2, controlled Home Medications ?Medication ?Instructions ?Recorded ?Last Taken ?Type atorvastatin 40 mg tablet 40 mg PO QHS 09/11/21 Unknown History hydrochlorothiazide 12.5 mg capsule 12.5 mg PO DAILY 09/11/21 Unknown History losartan 100 mg tablet 100 mg PO DAILY 09/11/21 Unknown History metformin 500 mg tablet 1,000 mg PO BID 09/11/21 Unknown History omeprazole 40 mg capsule,delayed 80 mg PO DAILY 09/11/21 Unknown History release empagliflozin 25 mg tablet 25 mg PO DAILY 07/13/23 Unknown History (Jardiance) Allergy/AdvReac Type Severity Reaction Status Date / Time ADRIANA Inhibitors Allergy Intermediate hives Verified 10/22/24 10:11 Social History Smoking Status: Never smoker ROS Constitutional Constitutional: Denies fatigue, fever(s), poor appetite, weight gain or weight loss Gastrointestinal Gastrointestinal: Denies belching, bloating, change in bowel habits, change in stool character, chewing difficulty, coffee ground emesis, constipation, cramping, diarrhea, dyspepsia, dysphagia, early satiety, excessive flatus, fecal incontinence, heartburn, hematemesis, hematochezia, hemorrhoids, loose stools, melena, nausea, odynophagia, rectal bleeding, tenesmus, vomiting or weight changes Physical Exam Const alert, oriented x3, no apparent distress and healthy appearing General Appearance: cooperative GI normal to inspection, nondistended, normoactive bowel sounds, soft to palpation, non-tender and non-distended Percussion: normal to percussion Rectal Exam: deferred Lab / Micro Data 10/22/24 13:12 10/22/24 10:30 Labs: Laboratory Results - last 24 hr 10/22/24 10:30: WBC 7.8, RBC 3.17 L, Hgb 8.9 L, Hct 27.7 L, MCV 87.4, MCH 28.1, MCHC 32.1, RDW Std Deviation 45.7 H, RDW Coeff of Ekaterina 14.8 H, Plt Count 243, MPV 10.2, Immature Gran % (Auto) 0.400, Neut % (Auto) 57.8, Lymph % (Auto) 31.5, Clarke % (Auto) 7.4, Eos % (Auto) 2.3, Baso % (Auto) 0.6, Absolute Neuts (auto) 4.5, Absolute Lymphs (auto) 2.44, Nucleated RBC % 1.4, Sodium 139, Potassium 3.6, Chloride 108 H, Carbon Dioxide 27.0, Anion Gap 5, BUN 13, Creatinine 1.22, Estim Creat Clear Calc 93.98, Est GFR (MDRD) Af Amer 79, Est GFR (MDRD) Non-Af 65, BUN/Creatinine Ratio 10.7, Glucose 154 H, Calcium 9.4, Total Bilirubin 0.60, AST 20, ALT 35, Alkaline Phosphatase 69, Troponin I High Sens 5, B-Natriuretic Peptide 2.3, Total Protein 7.1, Albumin 3.8, Globulin 3.3, Albumin/Globulin Ratio 1.2, Lipase 121 H 10/22/24 13:12: Hgb 7.9 L, Hct 25.0 L Assessment & Plan Assessment/Plan (1) Upper GI bleed: PLAN: 54-year-old male who presented to the emergency department chief complaint of dark tarry stools. Patient will have a workup performed here on the differential diagnose includes Melamin to upper GI bleed, diverticulosis, diverticulitis. Once workup is obtained reviewed he will be reevaluated. Patient will be given 40 mg IV Protonix. Patient CBC was reviewed and showed a white blood count of 7.8, hemoglobin did drop from 9.7-8.9, platelet count normal at 243. Patient sodium normal 139, potassium normal 3.6, creatinine normal at 1.22. Patient's AST and ALT were normal at 20 and 35 respectively with a normal total bilirubin of 0.60. Patient lipase was elevated to 121. Patient does not have any epigastric pain on exam. Patient was ambulated here in the emergency department oxygen level remained normal however he did become tachycardic and short of breath with exertion. He will undergo an upper endoscopy to evaluate his upper GI tract. He was explained alternatives, benefits, risk including not withstanding bleeding, infection, sepsis, perforation, need for charge and . He will have an ASA of 3. Charges/Coding Visit Charges Inpatient E&M: 34267 Init Hosp L3
--- NOTE | 2024-10-22 16:48 | PCM.POST.ANE ---
Anesthesia: Postop Eval I Current Vital Signs Temperature: 97.8 F Pulse Rate: 100 Blood Pressure: 133/114 Respiratory Rate: 16 Pulse Ox: 98 Oxygen Delivery Method: Room Air Assessment Airway patent: Yes Spontaneous unlabored respirations: Yes Mental status: Awake and Calm nausea: No Vomiting: No Anesthesia Complication: No Fluid Hydration Crystalloid volume administer (ml): 30 Total IV fluid infused: 30 Progress Note Anesthesia document: Postop Eval 1 completed: Yes
--- NOTE | 2024-10-22 16:49 | OP.CCLET_ITS ---
10/22/2024 Bladimir Smith [address] [place] [address] Re : Upper GI endoscopy procedure for Ron Back Dear Dr. Smith This procedure was performed on Tuesday, October 22, 2024. My impressions and recommendations are as follows: Impressions : - Normal esophagus. - Multiple gastric polyps. - Dieulafoy lesion of stomach. - No gross lesions in the second portion of the duodenum. - No specimens collected. Recommendations : - [facility] care. - Clear liquid diet today. - Continue present medications. My findings are described in the full procedure note, which is enclosed. If I can be of further assistance, please feel free to contact me at . Sincerely, Radhames Tolbert, 10/22/2024 4:48:54 PM This report has been signed electronically.
--- NOTE | 2024-10-22 16:49 | OP.EGD_ITS ---
Patient Name: Ron Back Procedure Date: 10/22/2024 4:11 PM Date of : 1970 Age: 54 Procedure: Upper GI endoscopy Indications: Active gastrointestinal bleeding Providers: Radhames Tolbert DO Medicines: Monitored Anesthesia Care Patient Profile: This is a 54 year old male. Refer to note in patient chart for documentation of history and physical. Patient has symptoms. Complications: No immediate complications. Procedure: Pre-Anesthesia Assessment: - Prior to the procedure, a History and Physical was performed, and patient medications and allergies were reviewed. The patient is competent. The risks and benefits of the procedure and the sedation options and risks were discussed with the patient. All questions were answered and informed consent was obtained. Patient identification and proposed procedure were verified by the physician in the pre-procedure area. Mental Status Examination: alert and oriented. Airway Examination: normal oropharyngeal airway and neck mobility. Respiratory Examination: clear to auscultation. Prophylactic Antibiotics: The patient does not require prophylactic antibiotics. Prior Anticoagulants: The patient has taken no anticoagulant or antiplatelet agents except for NSAID medication. ASA Grade Assessment: II - A patient with mild systemic disease. After reviewing the risks and benefits, the patient was deemed in satisfactory condition to undergo the procedure. The anesthesia plan was to use monitored anesthesia care (MAC). Immediately prior to administration of medications, the patient was re-assessed for adequacy to receive sedatives. The heart rate, respiratory rate, oxygen saturations, blood pressure, adequacy of pulmonary ventilation, and response to care were monitored throughout the procedure. The physical status of the patient was re-assessed after the procedure. After obtaining informed consent, the endoscope was passed under direct vision. Throughout the procedure, the patient's blood pressure, pulse, and oxygen saturations were monitored continuously. The Endoscope was introduced through the mouth, and advanced to the second part of duodenum. The upper GI endoscopy was accomplished without difficulty. The patient tolerated the procedure well. Scope In: 4:29:36 PM Scope Out: 4:39:31 PM Total Procedure Duration Time 0 hours 9 minutes 55 seconds Findings: The examined esophagus was normal. Multiple 2 mm hyperplastic polyps with no bleeding and no stigmata of recent bleeding were found in the entire examined stomach. A Dieulafoy lesion with oozing bleeding and stigmata of recent bleeding was found in the gastric body. Coagulation for hemostasis using heater probe was successful. Estimated blood loss was minimal. No gross lesions were noted in the second portion of the duodenum. Impression: - Normal esophagus. - Multiple gastric polyps. - Dieulafoy lesion of stomach. - No gross lesions in the second portion of the duodenum. - No specimens collected. Recommendation: - Return patient to [facility] for ongoing care. - Clear liquid diet today. - Continue present medications. Procedure Code(s): --- Professional --- 57057, Esophagogastroduodenoscopy, flexible, transoral; with control of bleeding, any method CPT copyright 2021 [employer]. All rights reserved. The codes documented in this report are preliminary and upon insurance coder review may be revised to meet current compliance requirements. Radhames Tolbert DO 10/22/2024 4:48:54 PM This report has been signed electronically. Number of Addenda: 0 Note Initiated On: 10/22/2024 4:11 PM
--- NOTE | 2024-10-22 17:06 | POSTOPAN2_ITS ---
Anesthesia Postop Eval I Sum Postop Eval Completion status Anesthesia document: Postop Eval 1 completed: Yes Anesthesia Postop Eval I Summary Anesthesia Postop Eval I Summary: Anesthesia Postop Eval I: Assessment Summary Airway patent Yes 10/22/24 16:49 [email or web address] Spontaneous unlabored Yes 10/22/24 16:49 [email or web address] respirations Mental status Awake,Calm 10/22/24 16:49 [email or web address] nausea No 10/22/24 16:49 [email or web address] Vomiting No 10/22/24 16:49 [email or web address] Anesthesia Postop Eval I: Fluid Summary Crystalloid volume administer 30 10/22/24 16:49 [email or web address] (ml) Colloids volume administered ( ml) Blood Product volume administered (ml) Total IV fluid infused 30 10/22/24 16:49 [email or web address] Anesthesia Postop Eval I: Summary Notes Anesthesia Complication No 10/22/24 16:49 [email or web address] Anesthesia Complication Comment: Post-operative progress note Anesthesia: Postop Eval II Evaluation Mental status: Awake and Calm Pain Level: 0 nausea: No Vomiting: No Complications Anesthesia Complication: No
--- NOTE | 2024-10-22 17:06 | PCM.POSTANE2 ---
Anesthesia Postop Eval I Sum Postop Eval Completion status Anesthesia document: Postop Eval 1 completed: Yes Anesthesia Postop Eval I Summary Anesthesia Postop Eval I Summary: Anesthesia Postop Eval I: Assessment Summary Airway patent Yes 10/22/24 16:49 [email or web address] Spontaneous unlabored Yes 10/22/24 16:49 [email or web address] respirations Mental status Awake,Calm 10/22/24 16:49 [email or web address] nausea No 10/22/24 16:49 [email or web address] Vomiting No 10/22/24 16:49 [employer] HOME [email or web address] Anesthesia Postop Eval I: Fluid Summary Crystalloid volume administer 30 10/22/24 16:49 [email or web address] (ml) Colloids volume administered ( ml) Blood Product volume administered (ml) Total IV fluid infused 30 10/22/24 16:49 [email or web address] Anesthesia Postop Eval I: Summary Notes Anesthesia Complication No 10/22/24 16:49 [email or web address] Anesthesia Complication Comment: Post-operative progress note Anesthesia: Postop Eval II Evaluation Mental status: Awake and Calm Pain Level: 0 nausea: No Vomiting: No Complications Anesthesia Complication: No
[2024-10-22 17:54] LABS: Hematocrit 24.7 % (40-54); Hemoglobin 7.7 g/dL (13.0-16.5)
[2024-10-22 18:50] LABS: Bedside Glucose 122 mg/dL (74-106)
[2024-10-22 23:18] LABS: Bedside Glucose 145 mg/dL (74-106)
[2024-10-23 00:41] LABS: Hematocrit 24.5 % (40-54); Hemoglobin 7.6 g/dL (13.0-16.5)
[2024-10-23] MEDS: Pantoprazole Sodium 80 MG in 0.9% Normal Saline (100mL Bag) 80 ML 10 MG CONT INF (01:33)
[2024-10-23 06:32] VITALS: BP 117/82; PULSE 79; RESP 18; TEMP 36.9; O2SAT 97
[2024-10-23 06:55] LABS: Absolute Lymphocyte Count 1.91 X10^3/uL (0.83-4.51); Absolute Neutrophil Count 3.3 X10^3/uL (2.0-7.7); Basophil# 0.03 X10^3/uL; Basophil% 0.5 % (0-1); Eosinophil# 0.16 X10^3/uL; Eosinophils% 2.7 % (0-5); Hematocrit 25.6 % (40-54); Hemoglobin 7.9 g/dL (13.0-16.5); Lymphocyte # 1.91 X10^3/ul (0.83-4.51); Lymphocyte % 32.7 % (19-41); Mean Corp Hgb Conc 30.9 g/dL (32-36); Mean Corpuscular Hgb 27.1 pg (27.0-32.0); Mean Corpuscular Volume 87.7 fL (80-94); Mean Platelet Vol. 10.5 fl (6.2-12.0); Monocyte# 0.45 X10^3/uL; Monocyte% 7.7 % (0-10); NRBC Flagged by Analyzer 0.9 % (0-5); Neutrophil # 3.27 X10^3/uL (2.7-7.7); Neutrophil % 56.1 % (47-70); Platelet Count 235 K/mm3 (150-450); RBC Distribution Width CV 14.9 % (11.6-14.6); RBC Distribution Width SD 46.5 fl (35.1-43.9); Red Blood Count 2.92 M/mm3 (4.6-6.2); White Blood Count 5.8 K/mm3 (4.4-11.0)
[2024-10-23 07:17] LABS: ALB/GLOB Ratio 1.2 RATIO (0.9-2.4); AST(SGOT) 18 U/L (15-37); Alanine Aminotransfer ALT/SGPT 33 U/L (16-61); Albumin, Serum 3.4 g/dL (3.2-5.0); Alkaline Phosphatase 65 U/L (45-117); Anion Gap 5 (5-15); BUN 10 mg/dL (7-18); BUN/Creat Ratio 9.4 RATIO (10-20); Calcium,Total 8.8 mg/dL (8.5-10.1); Chloride 106 mmol/L (98-107); Creatinine, Serum 1.06 mg/dL (0.70-1.30); EST Glomerular Filtration Rate 77 mL/min (>60); Est Glom Filt Rate - Afr Amer 93 mL/min (>60); Estimated Creatinine Clearance 107.82 ml/min; Globulin 2.9 g/dL (2.2-4.2); Glucose 100 mg/dL (74-106); Potassium 3.6 mmol/L (3.5-5.1); Protein, Total 6.3 g/dL (6.4-8.2); Sodium Level 138 mmol/L (136-145)
[2024-10-23 07:21] LABS: Bedside Glucose 105 mg/dL (74-106)
--- NOTE | 2024-10-23 10:11 | PCM.DC.SUM ---
Providers Date of Admission: 10/22/24 Date of Discharge: 10/23/24 Primary Care Physician: Dr. Bladimir Smith MD Consultations 10/22/24 12:56 Consult: Gastroenterology Routine Consulting Provider: [facility] Reason for Consult: GI bleed EMERGENT Consult: No MD Notified: Yes Date Notified: 10/22/24 Time Notified: 12:21 Method of Notification: ED Physician Initiated Reason For Visit: GIB Diagnosis Discharge Diagnosis (1) Melena: Status: Acute Code(s): K92.1 - Melena (2) Acute anemia: Status: Acute Code(s): D64.9 - Anemia, unspecified (3) Dyspnea on exertion: Status: Acute Code(s): R06.09 - Other forms of dyspnea Medications at Discharge Home Medications atorvastatin 40 mg tablet 40 mg PO QHS 09/11/21 hydrochlorothiazide 12.5 mg capsule 12.5 mg PO DAILY 09/11/21 losartan 100 mg tablet 100 mg PO DAILY 09/11/21 metformin 500 mg tablet 1,000 mg PO BID 09/11/21 empagliflozin 25 mg tablet (Jardiance) 25 mg PO DAILY 07/13/23 ferrous sulfate 325 mg (65 mg iron) tablet 325 mg PO TID #90 tabs 10/23/24 pantoprazole 40 mg tablet,delayed release 40 mg PO BID #60 tabs 10/23/24 Hospital Course Operations None Procedures EGD Summary of Care Provided Minutes Spent on Discharge: 39 Hospital Course: AI SHAFER, is a 54 M who presented to the emergency department [facility] on 12/23/2023 due to dark tarry stools. He reported that he has had dark tarry stools for about a week and he said progressively worsening shortness of breath with exertion. He went to his primary care physician's office today and had blood work at which time he was found to be anemic with a hemoglobin of 9.7. This is reportedly new however baseline is unknown. A stool sample was provided and found to be positive for heme and he was therefore sent to the emergency department. He reported that over the past 2 to 3 weeks he has been using meloxicam and Tylenol arthritis consistently for joint pain. He did report that he had a colonoscopy within the last 3 years and it was normal with no polyps removed. He states he is never had anything like this previously and has never been admitted in the hospital before. He denies any chest pain, nausea or vomiting, hematemesis, hematochezia or diarrhea. Vital signs on presentation showed a temperature of 97.3, heart rate 113, respiratory rate 22, blood pressure was 131/86 and pulse ox was 99% on room air. CBC on admission showed a hemoglobin of 8.9 but was otherwise unremarkable. Chemistry panel was unremarkable other than hyperglycemia with a blood sugar 154. Glascow-Blatchford score was 9 which placed him in the high risk category of requiring endoscopic intervention, surgery, and transfusion. He was admitted to the hospital and placed on every 6 hour hemoglobin checks, placed on a Protonix drip, made n.p.o. and was evaluated by gastroenterology. He was taken for EGD in the afternoon of the day of admission, 12/23/2023, and was found to have a normal esophagus, multiple gastric polyps that were about 2 mm and appeared to be hyperplastic with no signs of bleeding or stigmata of recent bleeding and a Dieulafoy lesion with oozing bleeding and stigmata of recent bleeding was found in the gastric body. Coagulation for hemostasis using heater probe was successful. Estimated blood loss was minimal. After the procedure he was placed on a clear liquid diet and then advance to a regular diet on the a.m. of 10/23/2024. He did well with breakfast and lunch. His hemoglobin stabilized in the upper seven range and on the day of discharge was 7.9. We did place him on supplemental iron at 325 mg 3 times daily for 30 days. I did ask him to take it with orange juice to enhance absorption. We did advise him that this may cause constipation and darker stools as well and he will watch his stools closely as well as monitor symptoms. He was advised that he may feel more fatigue and shortness of breath over the next couple weeks until his hemoglobin can recover. He voiced understanding. Patient was able to be discharged home on Protonix 40 mg p.o. twice daily which she will continue for 2 months. I did have him hold his HCTZ and losartan and have a blood pressure check as with volume loss related to his bleeding his blood pressures were on the lower side of normal without antihypertensives. I did advise once his blood pressures consistently over 130 systolic he may restart both medications. He is to follow-up with his primary care physician within the next 1 to 2 weeks. I have asked him to follow-up with Dr. Tolbert within the next 2 to 4 weeks. He is to call Dr. Tolbert's office or come back to the emergency department if he has any further issues with regards to the bleeding. Patient may go back to work on Friday. He was advised to avoid all NSAIDs for 30 days. He was discharged home in stable condition on 10/23/2024. Discharge diagnoses: Lower GI bleed secondary to Dieulafoy lesion Acute anemia FUENTES Essential hypertension Hyperlipidemia DM-2 History of GERD History of LESLIE Obesity Remote tobacco abuse Physical Exam Const alert, oriented x3, no apparent distress, no limitations, healthy appearing and well nourished; Negative for average body habitus Constitutional Narrative: Obese, middle-aged, -[place] male, sitting up in bed, appears comfortable, nontoxic, at bedside General Appearance: cooperative, comfortable, well kempt and well developed Exam Limitations: no limitations Nutritional Appearance: obese HEENT normocephalic, head/scalp atraumatic, hearing grossly normal bilaterally and moist oral mucous membranes HEENT Narrative: Mallampati 3-4, no thrush Eyes Negative for conjunctivae normal Eyes Narrative: Conjunctiva pallor noted, no scleral icterus Neck no lymphadenopathy and supple Neck Narrative: Trachea midline, no thyroid enlargement Resp normal respiratory effort, no retractions, no use of accessory muscles and clear to auscultation bilaterally Auscultation: Negative for rales, rhonchi or wheezes Cardio regular rhythm, S1 normal heart sound, S2 normal heart sound, no murmurs, no rub, no gallops and no clicks; Negative for regular rate Cardio Narrative: Mild tachycardia GI normal to inspection, nondistended, normoactive bowel sounds, soft to palpation and non-tender Extremity no clubbing, cyanosis or edema Extremity Narrative: 2+ pedal and radial pulses Skin no wounds, skin turgor normal and no jaundice Neuro oriented x3, moves all extremities and no focal motor deficits Speech: speech normal Psych affect normal Psych Narrative: Eye contact is good patient interacts appropriately Weight / BMI Weight Weight: 128.5 kg Body Mass Index (BMI) 38.4 ABG / Lab / Microbiology Data 10/23/24 06:00 10/23/24 06:00 Laboratory: Laboratory Results - last 24 hr 10/22/24 10:30: WBC 7.8, RBC 3.17 L, Hgb 8.9 L, Hct 27.7 L, MCV 87.4, MCH 28.1, MCHC 32.1, RDW Std Deviation 45.7 H, RDW Coeff of Ekaterina 14.8 H, Plt Count 243, MPV 10.2, Immature Gran % (Auto) 0.400, Neut % (Auto) 57.8, Lymph % (Auto) 31.5, Hendry % (Auto) 7.4, Eos % (Auto) 2.3, Baso % (Auto) 0.6, Absolute Neuts (auto) 4.5, Absolute Lymphs (auto) 2.44, Nucleated RBC % 1.4, Sodium 139, Potassium 3.6, Chloride 108 H, Carbon Dioxide 27.0, Anion Gap 5, BUN 13, Creatinine 1.22, Estim Creat Clear Calc 93.98, Est GFR (MDRD) Af Amer 79, Est GFR (MDRD) Non-Af 65, BUN/Creatinine Ratio 10.7, Glucose 154 H, Calcium 9.4, Total Bilirubin 0.60, AST 20, ALT 35, Alkaline Phosphatase 69, Troponin I High Sens 5, B-Natriuretic Peptide 2.3, Total Protein 7.1, Albumin 3.8, Globulin 3.3, Albumin/Globulin Ratio 1.2, Lipase 121 H 10/22/24 13:12: Hgb 7.9 L, Hct 25.0 L 10/22/24 17:38: Hgb 7.7 L, Hct 24.7 L 10/22/24 18:24: POC Glucose 122 H 10/22/24 22:58: POC Glucose 145 H 10/23/24 00:33: Hgb 7.6 L, Hct 24.5 L 10/23/24 06:00: WBC 5.8, RBC 2.92 L, Hgb 7.9 L, Hct 25.6 L, MCV 87.7, MCH 27.1, MCHC 30.9 L, RDW Std Deviation 46.5 H, RDW Coeff of Ekaterina 14.9 H, Plt Count 235, MPV 10.5, Immature Gran % (Auto) 0.300, Neut % (Auto) 56.1, Lymph % (Auto) 32.7, Hendry % (Auto) 7.7, Eos % (Auto) 2.7, Baso % (Auto) 0.5, Absolute Neuts (auto) 3.3, Absolute Lymphs (auto) 1.91, Nucleated RBC % 0.9, Sodium 138, Potassium 3.6, Chloride 106, Carbon Dioxide 27.0, Anion Gap 5, BUN 10, Creatinine 1.06, Estim Creat Clear Calc 107.82, Est GFR (MDRD) Af Amer 93, Est GFR (MDRD) Non-Af 77, BUN/Creatinine Ratio 9.4 L, Glucose 100, Calcium 8.8, Total Bilirubin 0.80, AST 18, ALT 33, Alkaline Phosphatase 65, Total Protein 6.3 L, Albumin 3.4, Globulin 2.9, Albumin/Globulin Ratio 1.2 10/23/24 06:40: POC Glucose 105 D/C Instructions Discharge Diet: Low fat / Low cholesterol and 2000 Calorie Control Diet Discharge Activity: Return to Normal Activity Return to work on: 10/25/24 DC O2, CPAP, BIPAP Needs Home O2 Discharge instructions: No Meaningful Use Info Meaningful Use Meaningful Use Diagnoses (Choose all that apply): None applicable Ischemic Stroke Statin Dosing Therapy Reference: STATIN DOSE THERAPY REFERENCE: * Patients > 75 years receive moderate or high dose statin therapy. * Patients 75 years or YOUNGER should receive HIGH intensity statin dose unless contraindicated. You will be required to document reason for non-treatment if statin daily dose does not meet guidelines. HIGH DOSE STATIN THERAPY DAILY Atorvastatin > than or = to 40 mg Rosuvastatin > than or = to 20 mg Amlodipine + Atorvastatin > than or = to 2.5/40 mg Ezetimibe + Simvastatin 10/80 mg Simvastatin 80mg Discharge Plan Admission Admit Date/Time: 10/22/24 12:20 Primary Reason for Your Visit: Dark stools Attending Provider: Kat Steve Primary Care Provider: Bladimir Smith Instructions Additional Instructions / Restrictions: 1. On endoscopy you were found to have multiple gastric polyps, a Dieulafoy lesion in the stomach which was the cause of your GI bleed and this was treated with coagulation via heater probe. This type of lesion is a vascular malformation that can cause GI bleeding related to torturous artery that penetrates the gastric mucosa. He will need close follow-up with Dr. Tolbert. Please call number below on Friday and set up an appointment to be seen in the next 1 to 2 weeks. 2. Your dark stools should slowly clear however the iron supplementation that you will be on for the next month could potentially make your stools dark as well. Please monitor. You may notice some fatigue for an extended period of time due to your hemoglobin being lower until your body can recover. If you develop any further signs of bleeding please come back to emergency department or call Dr. Tolbert's office. 3. I am going to hold your antihypertensives to include your HCTZ and losartan for the next week and I want you to get a blood pressure check either at home or in a doctor's office and once your blood pressure is consistently greater than 130 on the top number go ahead and restart your home blood pressure medication. Your blood pressure is likely low secondary to blood loss related to the bleeding. 4. Avoid all NSAIDs to includes meloxicam, Advil, naproxen, aspirin for 30 days 5. Take the iron prescription for 30 days then stop but please take with orange juice to enhance absorption. Iron can cause constipation so make sure getting plenty of fluids and use fiber or stool softener if needed. Discharge Orders/Prescriptions Prescriptions: New pantoprazole 40 mg Tablet,Delayed Release (Dr/Ec) 40 mg PO BID Qty: 60 1RF ferrous sulfate 325 mg (65 mg iron) tablet 325 mg PO TID Qty: 90 0RF Continued Jardiance 25 mg tablet 25 mg PO DAILY atorvastatin 40 mg tablet 40 mg PO QHS Patient Comments: take 1 tablet by mouth daily at bedtime metformin 500 mg tablet 1,000 mg PO BID Patient Comments: take 2 tablets by mouth twice a day with meals Held hydrochlorothiazide 12.5 mg capsule 12.5 mg PO DAILY Hold Instructions: Until blood pressure top number is greater than 130 consistently Patient Comments: take 1 capsule by mouth once daily losartan 100 mg tablet 100 mg PO DAILY Hold Instructions: Until blood pressure top number is consistently greater than 130 Patient Comments: take 1 tablet by mouth once daily Discontinued omeprazole 40 mg capsule,delayed release(DR/EC) 80 mg PO DAILY Patient Comments: take 1 capsule by mouth once daily Referrals / Follow Up: Bladimir Smith MD [Primary Care Provider] - Within 2 Weeks Radhames Tolbert DO [Med Staff - Active Staff] - See Referral Note (Call on Friday to set up an appointment to be seen within the next 2 to 4 weeks.) Disposition Disposition (needs filled in before D/C Order can be placed): Home, Self Care Charges/Coding Visit Charges Inpatient E&M: 14085 Disch Hosp >30min
[2024-10-23 10:14] VITALS: BP 112/57; PULSE 92; RESP 18; TEMP 36.7; O2SAT 96
[2024-10-23] MEDS: Atorvastatin Calcium 40 MG Tablet PO (10:16)
[2024-10-23] MEDS: Empagliflozin 25 MG Tablet PO (10:17)
== END 2024-10-23 11:45 | disposition home or self-care (01) | DRG 637 ==
LOC: ED 12:21 → PCU 12:31
PROVIDERS: Internal Medicine Gastroenterology; Admitting Provider Internal Medicine; Emergency Provider Emergency Medicine; PCP Internal Medicine; Visit Provider Internal Medicine
PROC: 0DJ08ZZ Inspection of Upper Intestinal Tract, Via Natural or Artificial Opening Endoscopic (ICD-10-PCS; CPT 43235; principal; 2024-10-22 14:25)
DX: E11.65 Type 2 diabetes mellitus with hyperglycemia (principal); K31.82 Dieulafoy lesion (hemorrhagic) of stomach and duodenum; I10 Essential (primary) hypertension; D50.0 Iron deficiency anemia secondary to blood loss (chronic); Z68.38 Body mass index [BMI] 38.0-38.9, adult; K21.9 Gastro-esophageal reflux disease without esophagitis; K31.7 Polyp of stomach and duodenum; E78.00 Pure hypercholesterolemia, unspecified; G47.33 Obstructive sleep apnea (adult) (pediatric); Z79.84 Long term (current) use of oral hypoglycemic drugs; R06.89 Other abnormalities of breathing; Z87.891 Personal history of nicotine dependence; E66.9 Obesity, unspecified; Z79.02 Long term (current) use of antithrombotics/antiplatelets; Z79.899 Other long term (current) drug therapy; Z88.8 Allergy status to other drugs, medicaments and biological substances
CPT/HCPCS: 36415; 80053; 82962; 83690; 83880; 84484; 85014; 85018; 85025; 93005; 94668; 99285